=== PATIENT | female | born 1990 | race African-American/Black ===

== ENCOUNTER 2017-06-02 14:09 | Emergency (ER) | payer OTHER ==
[~2017-06-02] VITALS: Ht 160 cm; Wt 69.0 kg
[2017-06-02 14:33] VITALS: BP 180/99
[2017-06-02] MEDS ORDERED: TRAM50TA3 PO (14:37)
[2017-06-02] MEDS ORDERED: UNKNOWN BP MED (14:38)
== END 2017-06-02 16:00 | disposition home or self-care (01) ==
LOC: ER 14:09
DX: M54.5 Low back pain (principal); G89.21 Chronic pain due to trauma; I10 Essential (primary) hypertension
CPT/HCPCS: 99283

== ENCOUNTER 2017-06-17 08:49 | Emergency (ER) | payer OTHER ==
[~2017-06-17] VITALS: Ht 160 cm; Wt 70.0 kg
[~2017-06-17 08:49] MED LIST: TRAM50TA3 PO; UNKNOWN BP MED
[2017-06-17] MEDS ORDERED: AZITHROMYCIN 500 MG TABLET PO ONE (09:15)
[2017-06-17] MEDS ORDERED: CEFTRIAXONE SODIUM 250 MG/VIAL IM ONE (09:15)
[2017-06-17 09:48] LABS: HCG SCREEN NEGATIVE
[2017-06-17] MEDS ORDERED: LIDOCAINE HCL 1% 20ML VIAL (Pyxis) INJ MC ONE (10:15)
[2017-06-17 10:33] LABS: CLARITY URINE CLEAR (CLEAR); COLOR URINE YELLOW (YELLOW); GLUCOSE URINE NEGATIVE (NEGATIVE); KETONES URINE NEGATIVE (NEGATIVE); LEUKOCYTE ESTERASE URINE 1+ (NEGATIVE); NITRITE URINE NEGATIVE (NEGATIVE); OCCULT BLOOD URINE NEGATIVE (NEGATIVE); PH URINE 7.5 (4.5-8.0); PROTEIN URINE NEGATIVE (NEGATIVE); SPECIFIC GRAVITY URINE 1.015 (1.005-1.030); UROBILINOGEN URINE 0.2 E.U./dL (0.2-1.0)
[2017-06-17 11:25] VITALS: BP 153/113
[2017-06-21 04:15] LABS: CHLAMYDIA TRACHOMATIS NAA Negative (Negative); NEISSERIA GONORRHOEAE NAA Negative (Negative)
== END 2017-06-17 12:04 | disposition home or self-care (01) ==
LOC: ER 09:45
DX: N89.8 Other specified noninflammatory disorders of vagina (principal); I10 Essential (primary) hypertension
CPT/HCPCS: 81001; 84703; 87077; 87086; 87210; 87491; 87591; 96372; 99284; J0696; J3490

== ENCOUNTER 2017-08-30 17:34 | Emergency (ER) | payer OTHER ==
[~2017-08-30] VITALS: Ht 160 cm; Wt 69.0 kg
[2017-08-30 18:23] VITALS: BP 170/130
== END 2017-08-30 20:30 | disposition left against medical advice (07) ==
LOC: ER 19:14
DX: Z53.21 Procedure and treatment not carried out due to patient leaving prior to being seen by health care provider (principal); I10 Essential (primary) hypertension

== ENCOUNTER 2022-08-18 11:58 | Emergency (ER) | payer MEDICAID, OTHER ==
[~2022-08-18] VITALS: Ht 162.6 cm; Wt 73.0 kg
[2022-08-18] MEDS ORDERED: IBUPROFEN 600MG TABLET PO ONE (13:00)
[2022-08-18 15:02] LABS: CLARITY URINE CLOUDY (CLEAR); COLOR URINE YELLOW (YELLOW); KETONES URINE TRACE (NEGATIVE); LEUKOCYTE ESTERASE URINE NEGATIVE (NEGATIVE); NITRITE URINE NEGATIVE (NEGATIVE); OCCULT BLOOD URINE 3+ (NEGATIVE); PROTEIN URINE TRACE (NEGATIVE); SPECIFIC GRAVITY URINE 1.025 (1.005-1.030); UROBILINOGEN URINE 0.2 E.U./dL (0.2-1.0)
[2022-08-18 16:30] VITALS: BP 145/76
== END 2022-08-18 16:40 | disposition home or self-care (01) ==
LOC: ER 11:58
DX: R10.2 Pelvic and perineal pain (principal); N83.201 Unspecified ovarian cyst, right side
CPT/HCPCS: 76830; 76856; 81003; 81025; 99284; Z7610

== ENCOUNTER 2022-11-17 09:10 | Emergency (ER) | payer MEDICAID ==
[~2022-11-17] VITALS: Ht 162.6 cm; Wt 72.7 kg
[2022-11-17 10:43] LABS: CLARITY URINE CLOUDY (CLEAR); COLOR URINE YELLOW (YELLOW); KETONES URINE NEGATIVE (NEGATIVE); LEUKOCYTE ESTERASE URINE 1+ (NEGATIVE); NITRITE URINE NEGATIVE (NEGATIVE); OCCULT BLOOD URINE 1+ (NEGATIVE); PROTEIN URINE NEGATIVE (NEGATIVE); SPECIFIC GRAVITY URINE 1.016 (1.005-1.030); UROBILINOGEN URINE 0.2 E.U./dL (0.2-1.0)
[2022-11-17] MEDS ORDERED: METR-167 MT (11:40)
[2022-11-17] MEDS ORDERED: METRONIDAZOLE 500MG TABLET PO ONE (11:45)
[2022-11-17 12:15] VITALS: BP 175/106
== END 2022-11-17 12:17 | disposition home or self-care (01) ==
LOC: ER 09:10
DX: N76.0 Acute vaginitis (principal); I10 Essential (primary) hypertension; Z00.00 Encounter for general adult medical examination without abnormal findings
CPT/HCPCS: 81003; 81025; 87086; 87186; 87210; 87591; 99284; Z7610